=== PATIENT | female | born 1995 | race Two or more races ===

== ENCOUNTER → 2017-03-02 | Outpatient (CLI) | payer OTHER | LOC: BRMIMAGING 11:19 | PROVIDERS: ATTEND Internal Medicine | DX: N83.201 Unspecified ovarian cyst, right side (principal) | CPT/HCPCS: 76856-PO ==

== ENCOUNTER → 2017-06-28 | Outpatient (CLI) | payer OTHER | LOC: FIMAGING 14:59 | PROVIDERS: ATTEND Obstetrics & Gynecology | DX: O34.219 Maternal care for unspecified type scar from previous cesarean delivery (principal); Z3A.12 12 weeks gestation of pregnancy ==

== ENCOUNTER → 2017-08-24 | Outpatient (CLI) | payer OTHER, MEDICAID | LOC: FIMAGING 11:49 | PROVIDERS: ATTEND Obstetrics & Gynecology | DX: O34.219 Maternal care for unspecified type scar from previous cesarean delivery (principal); Z3A.20 20 weeks gestation of pregnancy ==

== ENCOUNTER 2017-10-10 17:22 | Emergency (ER) | payer OTHER, MEDICAID ==
--- NOTE | 2017-10-10 17:38 | EDPHY ---
H & P Time Seen by Provider: 10/10/17 17:37 HPI/ROS: Chief complaint. Dizzy, syncope, HPI. Patient is a 22-year-old female who just prior to arrival was riding in a car. She began to feel dizzy and then had some spots before her eyes briefly and then she had a brief loss of consciousness. Unresponsive for a few seconds per her . She did vomit x1. She now is back to normal. The patient is 27 weeks . to/para 1. She has no abdominal pain and no vaginal bleeding. No urinary symptoms. She has no chest discomfort or shortness of breath. No previous history of syncope. She feels back to normal other than very mild headache. She is not ill and has not been running a fever. ROS Constitutional. no fever/chills, no weakness Eyes. no problems with vision ENT. no sore throat, no nasal drainage Cardiovascular. no chest pain Respiratory. no shortness of breath, no cough Abdominal. Vomiting x1 . no problems urinating MS. no calf pain/swelling, no neck/back pain, no joint pain Skin. no rash Lymph. no swollen glands Neuro. Mild headache, syncope Past Medical/Surgical History: Anemia of . Previous Social History: , nonsmoker, no alcohol Smoking Status: Never smoked Physical Exam: General Appearance: Alert well-developed female mild distress vital signs are stable Eyes: Pupils equal and round no pallor or injection. ENT, Mouth: Mucous membranes are moist. Respiratory: There are no retractions, lungs are clear to auscultation. Cardiovascular: Regular rate and rhythm. Gastrointestinal: Abdomen is soft and nontender, gravid appropriate for dates , bowel sounds normal. Neurological: Awake and alert, sensory and motor exams grossly normal. Skin: Warm and dry, no rashes. Musculoskeletal: Neck is supple nontender. Extremities symmetrical, full range of motion. Psychiatric: Patient is oriented X 3, there is no agitation. Constitutional: Initial Vital Signs Temperature (C) 36.8 C 10/10/17 17:30 Heart Rate 88 10/10/17 17:30 Respiratory Rate 16 10/10/17 17:30 Blood Pressure 103/71 10/10/17 17:30 O2 Sat (%) 96 10/10/17 17:30 O2 Delivery Mode Room Air Allergies/Adverse Reactions: No Known Allergies Allergy (Verified 10/10/17 17:29) Home Medications: Medication Instructions Recorded Ferrous Sulfate, Dried [Iron] 10/10/17 10/10/17 Medical Decision Making - Diagnostics EKG Interpretation: EKG interpreted by me shows normal sinus rhythm with normal interval and axis. QRS is normal there is no significant ST elevation or depression. There is no arrhythmia. The rate is 77 Procedures: IV normal saline, monitor ED Course/Re-evaluation: On re-evaluation at 7:00 p.m. patient has had her first liter of NS. She is feeling better. Still not too much urge to urinate. She is given 2 glasses of water and then is able to give urine sample. Point of care chemistry, CBC, urine dip are normal. heart tones are normal The patient her and I discussed laboratory an EKG evaluation. We discussed treatment plan including criteria for return importance of follow-up and further evaluation. They expressed understanding and agreement Differential Diagnosis: I do not find any evidence serious illness. I suspect that some of this may have been dehydration as the patient received a L of normal saline intravenously and still had minimal urge to urinate. No evidence for urinary tract infection, threatened , cardiac arrhythmia. - Data Points Laboratory Results: 10/10/17 18:13 POC Sodium 140 mEq/L mEq/L (135-145) POC Potassium 3.4 mEq/L mEq/L (3.3-5.0) POC Chloride 103.0 mEq/L mEq/L (97-110) POC Total CO2 23 mEq/L mEq/L (22-31) POC BUN 5 mg/dL L mg/dL (7-23) POC Creatinine 0.7 mg/dL mg/dL (0.6-1.0) POC Glucose 85 mg/dL mg/dL (70-100) POC Calcium 9.2 mg/dL mg/dL (8.5-10.4) POC Total Bilirubin 0.7 mg/dL mg/dL (0.1-1.4) POC AST 21 IU/L IU/L (14-46) POC ALT 15 IU/L IU/L (9-52) POC Alk Phosphatase 54 IU/L IU/L (38-126) POC Total Protein 6.6 g/dL g/dL (6.3-8.2) POC Albumin 2.9 g/dL L g/dL (3.5-5.0) Medications Given: Discontinued Medications Sodium Chloride (Ns) 1,000 mls @ 0 mls/hr IV EDNOW ONE; Wide Open PRN Reason: Protocol Stop: 10/10/17 17:47 Last Admin: 10/10/17 18:07 Dose: 1,000 mls Point of Care Test Results: CBC CBC Collection Date 10/10/17 CBC Collection Time 17:57 WBC 10.4 RBC 3.93 HGB 13.0 HCT 36.9 PLT 208 Neut # 7.2 Neut 69.5 LYMPH # 2.6 LYMPH 24.7 Other WBC # 0.6 Other WBC 5.8 MCV 93.9 Chemistry 10/10/17 18:13 POC Sodium 140 mEq/L mEq/L (135-145) POC Potassium 3.4 mEq/L mEq/L (3.3-5.0) POC Chloride 103.0 mEq/L mEq/L (97-110) POC Total CO2 23 mEq/L mEq/L (22-31) POC BUN 5 mg/dL L mg/dL (7-23) POC Creatinine 0.7 mg/dL mg/dL (0.6-1.0) POC Glucose 85 mg/dL mg/dL (70-100) POC Calcium 9.2 mg/dL mg/dL (8.5-10.4) POC Total Bilirubin 0.7 mg/dL mg/dL (0.1-1.4) POC AST 21 IU/L IU/L (14-46) POC ALT 15 IU/L IU/L (9-52) POC Alk Phosphatase 54 IU/L IU/L (38-126) POC Total Protein 6.6 g/dL g/dL (6.3-8.2) POC Albumin 2.9 g/dL L g/dL (3.5-5.0) Departure - Departure Disposition: Home, Routine, Self-Care Clinical Impression: Syncope and collapse Condition: Good Instructions: Syncope (ED) Additional Instructions: Drink plenty of fluids and stay hydrated. Regular meals. Continue vitamins and iron supplements. Return for another passing out episode, chest discomfort or trouble breathing or abdominal pain or vaginal bleeding. Recheck in 1-2 days if not completely back to normal Referrals: Froylan Tomas MD [Primary Care Provider] - 1 day, if not improved
[2017-10-10] MEDS ORDERED: NS 1,000 ML IV ONE (17:46)
--- NOTE | 2017-10-10 18:13 | CPEKG ---
Heart Rate: 77 RR Interval: 779 P-R Interval: 136 QRSD Interval: 94 QT Interval: 376 QTC Interval: 426 P [place]: 49 QRS [place]: 49 T Wave [place]: 5 EKG Severity - NORMAL ECG - EKG Impression: SINUS RHYTHM Electronically Signed By: Jeremiah Del Rio 10-Oct-2017 18:24:05
[2017-10-10 19:30] VITALS: BP 101/60
== END 2017-10-10 19:29 | disposition home or self-care (01) ==
LOC: CED 17:22
DX: O99.89 Other specified diseases and conditions complicating pregnancy, childbirth and the puerperium (principal); R55 Syncope and collapse; E86.9 Volume depletion, unspecified; Z3A.27 27 weeks gestation of pregnancy
CPT/HCPCS: 80053-PO

== ENCOUNTER → 2017-11-29 | Outpatient (CLI) | payer OTHER, MEDICAID | LOC: FIMAGING 14:36 | PROVIDERS: ATTEND Obstetrics & Gynecology | DX: O09.293 Supervision of pregnancy with other poor reproductive or obstetric history, third trimester (principal); Z3A.34 34 weeks gestation of pregnancy ==